=== PATIENT | male | born 1985 | race Caucasian/White ===

== ENCOUNTER 2019-01-23 01:09 | Inpatient (IN) ==
[2019-01-23] MEDS ORDERED: EPINEPHrine 1 MG/ML VIAL SUBCUT STA (01:25)
[2019-01-23] MEDS ORDERED: diphenhydrAMINE 50 MG/1 ML VIAL IV STA (01:25)
[2019-01-23] MEDS ORDERED: FAMOTIDINE 20 MG/2 ML VIAL IV STA (01:25)
[2019-01-23] MEDS ORDERED: methylPREDNISolone SOD SUC 125 MG/2 ML VIAL IV STA (01:25)
[2019-01-23] MEDS ORDERED: ALBUTEROL/IPRATROPIUM 3 ML NEB RESP TX STA (01:25)
[2019-01-23 02:43] LABS: Basophils # 0.1 10*3/uL (0.0-0.2); Basophils % 0.6 % (0.0-0.8); Eosinophils # 0.2 10*3/uL (0.0-0.87); Eosinophils % 1.4 % (0.00-10.9); Hematocrit 44.9 VOL% (42.0-52.0); Hemoglobin 13.7 GM/DL (14.0-18.0); Immature Granulocytes % 0.6 %; Immature Granulocytes Absolute 0.07 #; Lymphocytes # 2.3 10*3/uL (1.4-4.0); Mean Corpuscular HGB Conc 30.5 GM/DL (32-36); Mean Platelet Volume 9.8 FL (9.6-12.0); Monocytes % 7.7 % (1.7-12.7); Neutrophils % 69.7 % (38.7-73.9); Platelet Count 338 T/CUMM (130-400); Red Blood Count 4.83 MC/CUMM (3.8-5.5); Red Cell Distribution Width 12.8 % (9.3-17.3); White Blood Count 11.6 T/CUMM (4-12)
[2019-01-23 02:59] LABS: Albumin 2.4 G/DL (3.4-5.0); Calcium 8.1 MG/DL (8.5-10.1); Osmolality,Calculated 283.4 MOS/KG (273-304); Total Protein 6.1 G/DL (6.4-8.3)
[2019-01-23] MEDS ORDERED: FUROSEMIDE 40 MG/4 ML VIAL IV STA (03:38)
[2019-01-23 04:14] LABS: Band Neutrophils 1 % (0-10); Eosinophils 3 % (0-10); Lymphocytes 17 % (20-55); Segmented Neutrophils 78 % (50-85)
[2019-01-23 04:15] LABS: Platelet Estimate Adequate; Total Cells Counted 100
[2019-01-23] MEDS ORDERED: LEVOFLOXACIN INJ 750 MG in PREMIX 1 EACH IV STA (04:18)
[2019-01-23] MEDS ORDERED: NITROGLYCERIN 2% OINT 1 INCH/GM PACK TOP STA (04:32)
[2019-01-23] MEDS ORDERED: ENOXAPARIN 100 MG/ML SYRINGE SUBCUT STA (04:32)
[2019-01-23] MEDS ORDERED: hydrALAZINE 20 MG/1 ML VIAL IV STA ×2 (04:32→05:30)
[2019-01-23] MEDS ORDERED: hydrALAZINE 20 MG/1 ML VIAL IV PRN (05:34)
[2019-01-23] MEDS ORDERED: MORPHINE 4 MG/1 ML VIAL IV PRN (05:34)
[2019-01-23] MEDS ORDERED: diphenhydrAMINE CAP 25 MG CAPSULE PO PRN (05:34)
[2019-01-23] MEDS ORDERED: guaiFENesin/DM ER 600-30 MG TABLET PO PRN (05:34)
[2019-01-23] MEDS ORDERED: POTASSIUM CHLORIDE 20 MEQ TABLET PO PRN (05:34)
[2019-01-23] MEDS ORDERED: ACETAMINOPHEN 325 MG TABLET PO PRN (05:34)
[2019-01-23] MEDS ORDERED: NICOTINE 21 MG/24 HR PATCH TRANSDERM PRN (05:34)
[2019-01-23] MEDS ORDERED: MAGNESIUM SULF RIDER 4 GM in PREMIX 1 EACH IV PRN (05:34)
[2019-01-23] MEDS ORDERED: ONDANSETRON 4 MG/2 ML VIAL IV PRN (05:34)
[2019-01-23] MEDS ORDERED: MAGNESIUM SULF RIDER 2 GM in PREMIX 1 EACH IV PRN (05:34)
[2019-01-23 06:24] LABS: Risk Ratio 6.09; Thyroid Stimulating Hormone 3.08 uIU/ml (0.358-3.74); VLDL CHOLESTEROL 20.2 MG/DL
[2019-01-23] MEDS: ALBUTEROL/IPRATROPIUM 3 ML NEB RESP TX SCH ×3 (07:22→19:43)
[2019-01-23 07:45] LABS: Apearance,Urine CLEAR (Clear); Bilirubin,Urine Negative (Negative); Blood, Urine Small mg/dL (Negative); Glucose,Urine (UA) Negative (Negative); Ketones,Urine Negative (Negative); Nitrite,Urine Negative (Negative); Protein,Urine Negative; RBC,Urine 3 /HPF (0-4); Urine Color Colorless (Yellow); Urine Specific Gravity 1.008 (1.001-1.035); Urine Urobilinogen < 2.0 EU/DL (0.2-1.0); WBC,Urine <1 /HPF (0-6)
[2019-01-23 07:58] LABS: Barbiturates Screen,Urine Negative (Negative); Benzodiazepines Screen,Urine Negative (Negative); Cannabinoid Screen,Urine Negative (Negative); Opiate Screen,Urine Negative (Negative); Phencyclidine Screen,Urine Negative (Negative)
[2019-01-23] MEDS ORDERED: FUROSEMIDE 20 MG/2 ML VIAL IV SCH (08:00)
[2019-01-23 08:09] LABS: Troponin I 0.625 NG/ML (0.00-0.045)
[2019-01-23] MEDS: PANTOPRAZOLE 40 MG TABLET PO SCH (10:03)
[2019-01-23 10:42] LABS: Hepatitis B Surface Ag Quant < 0.10 Index; Hepatitis B Surface Ag Result Negative (Negative); Hepatitis C Virus Ab Quant 0.11 Index; Hepatitis C Virus Ab Result Negative (Negative)
[2019-01-23 10:53] LABS: Troponin I 0.709 NG/ML (0.00-0.045)
[2019-01-23 10:56] LABS: Creatinine Ur Quant Random < 13 MG/DL; Microalbum Ur Quant Random 64.6 MG/L (0-20)
[2019-01-23] MEDS: SACUBITRIL/VALSARTAN 49-51 MG TABLET PO SCH ×2 (12:14→20:41)
[2019-01-23] MEDS: FUROSEMIDE 40 MG/4 ML VIAL IV SCH ×2 (12:15→17:45)
[2019-01-23] MEDS: APIXABAN 5 MG TABLET PO SCH ×2 (12:22→20:40)
[2019-01-23] MEDS: CARVEDILOL 3.125 MG TABLET PO SCH (20:40)
[2019-01-23] MEDS: SPIRONOLACTONE 25 MG TABLET PO SCH (21:30)
[2019-01-24] MEDS: ALBUTEROL/IPRATROPIUM 3 ML NEB RESP TX SCH ×3 (00:39→12:40)
[2019-01-24 05:41] LABS: Bilirubin,Total 0.9 MG/DL (0.2-1.0); Calcium 7.8 MG/DL (8.5-10.1); Osmolality,Calculated 286.3 MOS/KG (273-304); Total Protein 5.1 G/DL (6.4-8.3)
[2019-01-24] MEDS ORDERED: LEVOFLOXACIN INJ 750 MG in PREMIX 1 EACH IV SCH (06:00)
[2019-01-24] MEDS: FUROSEMIDE 40 MG/4 ML VIAL IV SCH (08:56)
[2019-01-24] MEDS: SACUBITRIL/VALSARTAN 49-51 MG TABLET PO SCH (08:57)
[2019-01-24] MEDS: PANTOPRAZOLE 40 MG TABLET PO SCH (08:57)
[2019-01-24] MEDS: CARVEDILOL 3.125 MG TABLET PO SCH (08:57)
[2019-01-24] MEDS: SPIRONOLACTONE 25 MG TABLET PO SCH (08:57)
[2019-01-24] MEDS: APIXABAN 5 MG TABLET PO SCH (08:57)
[2019-01-24] MEDS ORDERED: ENOXAPARIN 40 MG/0.4 ML SYRINGE SUBCUT SCH (09:00)
[2019-01-24] MEDS ORDERED: CARVEDILOL 6.25 MG TABLET PO SCH (10:52)
[2019-01-24] MEDS ORDERED: ASCORBIC ACID 500 MG TABLET PO SCH (11:30)
[2019-01-24 12:47] VITALS: BP 156/106
== END 2019-01-24 14:17 | disposition home or self-care (01) | DRG 292 ==
LOC: N.ED 01:09 → SUATTDRO 05:34 → N.EDINP 05:34 → N.TELES 05:52 → N.TELEN 06:02
PROVIDERS: ADMIT Internal Medicine; ATTEND Family Medicine